=== PATIENT | female | born 1965 | race Caucasian/White ===

== ENCOUNTER 2025-06-13 12:57 | Emergency (ER) | payer BC ==
[~2025-06-13] VITALS: Ht 157.5 cm; Wt 57.7 kg
[~2025-06-13 12:57] MED LIST: LINE600T11 PO
--- NOTE | 2025-06-13 14:05 | Physician Documentation ---
History of Present Illness ~ General Chief Complaint: Chest Wall Pain Stated Complaint: CHEST PAIN Time Seen by MD: 13:08 Primary Medical Doctor: Dr. Varma Source: patient Mode of Arrival: POV History of Present Illness Initial Comments Patient is a 60-year-old female with current strep throat infection presenting to the ED for evaluation of persistent cough for the past three weeks. Patient reports that she just recently started Augmentin five days ago. She woke up this morning with pain under her left breast, describing it as a "sharp" sensation. She does admit that she has been coughing hard all week. She called the nurse line and was recommended to come into the ED for evaluation. She denies having fevers, leg swelling, history of clots, hormone treatments. She has not been on any recent long travels. She is a former smoker. She has no other questions, concerns or complaints at this time. Medication Reconciliation Allergies: Coded Allergies: No Known Allergies (Unverified , 12/08/22) Scheduled Linezolid (ZYVOX tablet), 600 MG PO BID Past Medical History Past Medical History: No Pertinent History Other Past Medical History: Strepthroat Past Surgical History: noncontributory Patient History: FH: atrial fibrillation MOTHER FH: heart disease FATHER Smoking Status: Unknown if ever smoked Lives with: Spouse Lives In: Home Occupation: employed Review of Systems ROS ROS: Constitutional: Negative for fever and chills. HENT: Negative for sore throat and rhinorrhea. Eyes:Negative for pain and redness. Respiratory: + Cough. Negative for shortness of breath. Cardiovascular: Negative for chest pain and palpitations. Gastrointestinal: Negative for nausea and vomiting. Genitourinary: Negative for dysuria and hematuria. Musculoskeletal: + Pain under left breast. Negative for acute back pain and acute neck pain. Skin: Negative for rash and pruritus. Neurological: Negative for acute numbness or weakness. Physical Exam Physical Exam Vital Signs: Temperature: 98.3, Source: Oral, Heart Rate: 81, Respiratory Rate: 20, BP: 124/70, Pulse Oximetry: 96, Weight: 57.700 Oxygen Flow Rate: 0 Physical Exam PHYSICAL EXAM: General Appearance: WDWN, No Distress, Cooperative, Awake Head: No Trauma. Scalp Normal Eyes: Lids normal, conjunctiva normal ENT: Mucous membranes normal, facial bones normal, lips normal, oropharynx normal Neck: Normal active FROM, non-tender with ROM, no meningeal signs, No JVD Back: Normal active FROM, non-tender with ROM, no CVAT Resp: Normal resp rate, normal flow, lungs clear to auscultation, no resp distress, no retractions Heart: Reg rhythm, no murmur Abd: Soft, non-tender, no guarding, no rebound, no mass Musc/Skel: 1+ chest wall TTP, Normal ROM UE's and LE's, No acute bone/joint abnormality or tenderness, no crepitus, no step-off Skin: Normal color, no petechia/purpura, no rash Extremities: No edema Neuro: Motor 5/5 & Symmetric Bilat, CN 2-12 grossly intact and symmetric bilat. Oriented x4, speech normal. Psych: Mood & Affect: Normal, Depressed: 0, Awareness & insight normal Progress Results/Orders Results/Orders Orders - CHRIS TORRE MD Uni Ribs With Pa Chest (06/13/25 ) Completed Orders - CHRIS TORRE MD Cbc/Diff (06/13/25 13:58) Electrocardiogram (06/13/25 13:58) BMP (06/13/25 13:58) Hs Troponin I W Calculations (06/13/25 13:58) Uni Ribs With Pa Chest (06/13/25 ) Vital Signs 06/13/25 06/13/25 06/13/25 06/13/25 13:21 15:00 15:20 16:35 Temp 98.3 98.3 Pulse 81 97 Resp 20 19 16 B/P (MAP) 124/70 114/79 (91) Pulse Ox 96 97 O2 Flow Rate 0 Laboratory Tests Test 06/13/25 13:16 White Blood Count 13.2 H Red Blood Count 4.96 Hemoglobin 14.5 Hematocrit 44.0 Mean Corpuscular Volume 88.7 Mean Corpuscular Hemoglobin 29.3 Mean Corpuscular Hemoglobin Concent 33.0 Red Cell Distribution Width 12.6 Platelet Count 311 Mean Platelet Volume 8.9 Neutrophils (%) (Auto) 79.6 H Lymphocytes (%) (Auto) 15.0 L Monocytes (%) (Auto) 3.6 Eosinophils (%) (Auto) 1.4 Basophils (%) (Auto) 0.4 Neutrophils # (Auto) 10.5 H Lymphocytes # (Auto) 2.0 Monocytes # (Auto) 0.5 Eosinophils # (Auto) 0.2 Basophils # (Auto) 0.1 CBC Comment Sodium Level 143 Potassium Level 4.2 Chloride Level 106 Carbon Dioxide Level 30.3 Anion Gap 7 L Blood Urea Nitrogen 13 Creatinine 0.67 Estimated GFR/1.73 m2 90 BUN/Creatinine Ratio 19.4 Glucose Level 86 Calcium Level 9.2 Troponin I High Sensitivity 5 Albumin 3.4 Chemistry Comments EKG/XRAY/CT/US/VASC/MRI EKG : Additional Comment EKG Performed at 1:00 p.m. interpreted by me at 1:02 p.m. Rate 86, sinus rhythm, normal axis, artifact present, normal intervals, ST/T changes septal laterally Abnormal EKG with no significant change from EKG compared with December 08, 2022 Medical Decision Making Additional information obtaine: old records, family Findings Patient currently on p.o. Augmentin Differential Diagnosis Patient is a 60-year-old female with current strep throat infection presenting to the ED for evaluation of persistent cough for the past three weeks. Patient reports that she just recently started Augmentin five days ago. Patient with left-sided rib pain x-ray negative for any pneumonia, fracture, pneumothorax. Doubtful dissection, doubtful cardiac etiology. Okay to continue antibiotic regimen follow up with PMD strict return precautions, no DVT/PE risk factors noted. Departure Disposition: HOME / SELF CARE / HOMELESS Impression: Primary Impression: Chest wall pain Additional Impression: Rib pain Discharge Instructions: Chest Wall Pain, Costochondritis Additional Instructions: Follow up with your primary care physician in 3-5 days for further evaluation Referrals: NO PRIMARY CARE PROVIDER (PCP) Education Educated: Patient Educated regarding: diagnosis Signature Scrpiper Signature: Scribed for Chris Torre MD by Robert Sands . 06/13/25 14:20 Attestation: The note accurately reflects work and decisions made by me.Chris Torre MD 06/13/25 CHRIS TORRE MD Jun 13, 2025 14:05 ROBERT WINSLOW Jun 13, 2025 14:26
[2025-06-13 14:39] LABS: MEAN PLATELET VOLUME 8.9 FL (7.4-10.4); RED CELL DISTRIBUTION WIDTH 12.6 % (11.5-14.5)
--- NOTE | 2025-06-13 14:40 | RADIOLOGY REPORT ---
EXAM: DI UNI RIBS WITH PA CHEST CLINICAL HISTORY: pain, Left rib xray series with chest TECHNIQUE: Single PA projection of the chest and 2 projections of the left ribs WID: COMPARISON: Chest radiograph from 12/09/2019 FINDINGS: Lines and tubes: There are bilateral breast implants with calcification of the bilateral breast implant capsules. Chest: The heart size and pulmonary vasculature is within normal limits. Calcified plaque projects Over the aortic arch. No pleural effusion, pneumothorax, or consolidation. The osseous structures are grossly intact. There are 12 left ribs. No displaced left rib fracture seen. IMPRESSION: 1. No acute cardiopulmonary abnormality. 2. No displaced left rib fracture.
[2025-06-13 14:44] LABS: CREATININE 0.67 MG/DL (0.40-0.90); TOTAL CARBON DIOXIDE 30.3 MMOL/L (24-32); eCRCL 72 ML/MIN; eGFR 90 ML/MIN
--- NOTE | 2025-06-13 14:52 | ELECTROCARDIOGRAPH REPORT ---
[facility] Test Date: 2025-06-13 Test Time: 13:00:59 Pat Name: ALDO FALL Department: EMERGENCY ROOM Patient ID: [id number] Room: Gender: F Corporate Human Resources Manager: : 1965 Requested By: CHRIS MIGUEL Order Number: [id number] Reading MD: Measurements Intervals [place] Rate: 86 P: 82 ID: [id number] QRS: 49 QRSD: 100 T: 46 QT: 377 QTc: 451 Interpretive Statements Sinus rhythm Minimal ST depression, anterolateral leads Baseline wander in lead(s) I,III,aVL,aVF Please click the below link to view image of tracing.
[2025-06-13 15:20] VITALS: BP 114/79; PULSE 97; RESP 16; O2SAT 97
[2025-06-13 16:35] VITALS: TEMP 98.3
== END 2025-06-13 16:46 | disposition home or self-care (01) ==
LOC: ER 12:58
DX: R07.89 Other chest pain (principal)
CPT/HCPCS: 36415; 71101; 80048; 84484; 85025; 93005; 99285